=== PATIENT | female | born 1995 | race Caucasian/White ===

== ENCOUNTER 2020-09-29 13:19 | Outpatient (CLI) | payer OTHER ==
[2020-09-29 14:24] LABS: HEMOGLOBIN 10.4 gm/dl (12.3-15.3); RED BLOOD COUNT 3.74 M/UL (4.00-5.10); WHITE BLOOD COUNT 7.3 K/UL (4.5-11.0)
[2020-09-29 14:37] LABS: BUN/CREATININE RATIO 14 (0-10)
== END 2020-09-29 15:53 | disposition home or self-care (01) ==
LOC: GENOP 13:19 → OB 13:42 → GENOP 15:53
PROVIDERS: Obstetrics & Gynecology
DX: O16.3 Unspecified maternal hypertension, third trimester (principal); Z3A.34 34 weeks gestation of pregnancy
CPT/HCPCS: 36415; 59025; 80053; 82570; 84156; 84550; 85025; 96372; J0702

== ENCOUNTER 2020-10-11 12:35 | Inpatient (IN) | payer OTHER ==
[2020-10-11 13:55] LABS: HEMOGLOBIN 10.6 gm/dl (12.3-15.3); RED BLOOD COUNT 3.88 M/UL (4.00-5.10); WHITE BLOOD COUNT 7.6 K/UL (4.5-11.0)
[2020-10-11 15:22] LABS: BUN/CREATININE RATIO 19 (0-10)
[2020-10-12] MEDS ORDERED: IBUPROFEN800 MG PO (14:41)
[2020-10-12] MEDS ORDERED: HYDROCODON-ACE1 EAC4 PO (14:41)
[2020-10-12] MEDS ORDERED: DOCUSATE SODIU100 MG PO (14:41)
[2020-10-13 06:34] LABS: HEMOGLOBIN 8.1 gm/dl (12.3-15.3)
== END 2020-10-14 14:51 | disposition home or self-care (01) | DRG 807 ==
LOC: GENOP 12:35 → OB 13:13
PROVIDERS: Obstetrics & Gynecology; ADMIT Obstetrics & Gynecology
PROC: 0U7C7ZZ Dilation of Cervix, Via Natural or Artificial Opening (ICD-10-PCS; principal; 2020-10-11)
PROC: 4A1HX4Z Monitoring of Products of Conception, Cardiac Electrical Activity, External Approach (ICD-10-PCS; 2020-10-11)
PROC: 10907ZC Drainage of Amniotic Fluid, Therapeutic from Products of Conception, Via Natural or Artificial Opening (ICD-10-PCS; 2020-10-11)
PROC: 10E0XZZ Delivery of Products of Conception, External Approach (ICD-10-PCS; 2020-10-12)
PROC: 0HQ9XZZ Repair Perineum Skin, External Approach (ICD-10-PCS; 2020-10-12)
DX: O13.4 Gestational [pregnancy-induced] hypertension without significant proteinuria, complicating childbirth (principal); Z37.0 Single live birth; Z3A.36 36 weeks gestation of pregnancy; O99.334 Smoking (tobacco) complicating childbirth; F17.210 Nicotine dependence, cigarettes, uncomplicated; O62.3 Precipitate labor; O70.9 Perineal laceration during delivery, unspecified; Z20.822 Contact with and (suspected) exposure to COVID-19
CPT/HCPCS: 36415; 80053; 81001; 82800; 83615; 83735; 84156; 84550; 85014; 85018; 85025; 85379; 85384; 85610; 85730; J0595; J2405; J2590; J3475; J7030; J7120; U0002

== ENCOUNTER → 2020-10-11 | Outpatient (CLI) | payer OTHER ==
[~2020-10-11] MED LIST: DOCUSATE SODIU100 MG PO; HYDROCODON-ACE1 EAC4 PO; IBUPROFEN800 MG PO
[2020-10-11 09:57] LABS: URINE TOTAL PROTEIN 380 mg/dl
[2020-10-11 10:21] LABS: HEMOGLOBIN 11.2 gm/dl (12.3-15.3); RED BLOOD COUNT 4.06 M/UL (4.00-5.10); WHITE BLOOD COUNT 7.1 K/UL (4.5-11.0)
[2020-10-11 10:54] LABS: BUN/CREATININE RATIO 16 (0-10)
== END ==
LOC: LAB 09:09
PROVIDERS: Obstetrics & Gynecology
DX: O10.919 Unspecified pre-existing hypertension complicating pregnancy, unspecified trimester (principal)
CPT/HCPCS: 36415; 80053; 83615; 84156; 84550; 85025; 85379; 85384; 85610; 85730